=== PATIENT | female | born 1990 | race Caucasian/White ===

== ENCOUNTER 2016-04-02 23:24 | Emergency (ER) | payer OTHER ==
[2016-04-02 23:35] VITALS: TEMP 97.9
--- NOTE | 2016-04-02 23:41 | EDPHY ---
H & P Stated Complaint: ETOH - Personal History LMP (Females 10-55): 8-14 Days Ago Current Tetanus/Diphtheria Vaccine: Yes Current Tetanus Diphtheria and Acellular Pertussis (TDAP): Yes - Medical/Surgical History Hx Asthma: Yes Hx Chronic Respiratory Disease: No Hx Diabetes: No Hx Cardiac Disease: No Hx Renal Disease: No Hx Cirrhosis: No Hx Alcoholism: No Hx HIV/AIDS: No Hx Splenectomy or Spleen Trauma: No Other PMH: Asthma - Social History Smoking Status: Never smoked Time Seen by Provider: 04/02/16 23:31 HPI/ROS: CHIEF COMPLAINT: Suspected alcohol intoxication HISTORY OF PRESENT ILLNESS: 25-year-old female in the ER via ambulance and police. Police report that the patient was found running down [facility] naked. Admitted to alcohol use. No reports of trauma or assault . does state that she sustained a right knee abrasion when the police tackled me. Tetanus up-to-date. PRIMARY CARE PROVIDER: In [place] REVIEW OF SYSTEMS: A ten point review of systems was performed and is negative with the exception of the items mentioned in the HPI PAST MEDICAL & SURGICAL HISTORY: No pertinent medical or surgical history SOCIAL HISTORY: admits positive alcohol use PHYSICAL EXAM (Prior to examination, patient consented to physical exam, hands were washed and my usual and customary physical exam procedures followed) 1) GENERAL: Well-developed, well-nourished, alert and oriented. Tearful, anxious, agitated 2) HEAD: Normocephalic, atraumatic 3) HEENT: Pupils equal, round, reactive to light bilaterally. Sclera anicteric. 4) NECK: Full range of motion, no meningeal signs. 5) LUNGS: Clear auscultation bilaterally 6) HEART: Regular rate and rhythm, no murmur, no heave, no gallop. 7) ABDOMEN: No guarding, no rebound, no focal tenderness, 8) MUSCULOSKELETAL: Right knee abrasion, full pain-free range of motion full weight-bearing. Otherwise, Moving all extremities, no focal areas of tenderness, no obvious trauma. No peripheral edema or discoloration. 9) BACK: no obvious trauma, no visual or palpable abnormality. 10) SKIN: No rash, no petechiae. 11) Psychiatric: Patient is oriented X 3, she is intermittently agitated DIFFERENTIAL DIAGNOSIS: in no particular include but limited to alcohol use, head injury, polysubstance abuse (Rosalie Clifford) Constitutional: Initial Vital Signs Temperature (C) 36.6 C 04/02/16 23:33 Heart Rate 96 04/02/16 23:33 Respiratory Rate 16 04/02/16 23:33 Blood Pressure 117/66 04/02/16 23:33 O2 Sat (%) 97 04/02/16 23:33 O2 Delivery Mode Room Air Allergies/Adverse Reactions: No Known Allergies Allergy (Verified 04/02/16 23:33) Home Medications: Medication Instructions Recorded ALBUTEROL SULFATE 01/04/10 Medical Decision Making ED Course/Re-evaluation: 11:40 p.m.: Breathalyzer alcohol 267. Doubt head injury. I do not think that CT imaging currently indicated. patient's sober friends in the emergency department. They agreed to take her home. (Rosalie Clifford) PHYSICIAN DOCUMENTATION: The patient was evaluated and managed by the Physician Equipment Mechanic Specialist. My co- signature indicates that I have reviewed this chart and I agree with the findings and plan of care as documented. I am the secondary supervising physician. (Oralia Soares) Departure - Departure Disposition: Home, Routine, Self-Care Clinical Impression: Alcoholic intoxication, Abrasion, right knee, initial encounter Condition: Fair Instructions: Alcohol Intoxication (ED) Referrals: Patient,NotPresent [Primary Care Provider] - As per Instructions [facility] 24 Hours [Outside] - As per Instructions
[2016-04-03 00:28] VITALS: BP 100/85; PULSE 78; RESP 20; O2SAT 98
== END 2016-04-03 00:28 | disposition home or self-care (01) ==
LOC: EDUNIT#
DX: S80.211A Abrasion, right knee, initial encounter (principal); F10.129 Alcohol abuse with intoxication, unspecified; J45.909 Unspecified asthma, uncomplicated; X58.XXXA Exposure to other specified factors, initial encounter; Y92.410 Unspecified street and highway as the place of occurrence of the external cause